=== PATIENT | male | born 1995 ===

== ENCOUNTER 2016-10-29 12:33 | Emergency (ER) | payer OTHER ==
[2016-10-29 12:44] VITALS: BP 119/65; PULSE 67; RESP 16; TEMP 98; O2SAT 100
--- NOTE | 2016-10-29 13:10 | ED PDOC ---
Upper Extremity Pain/Injury Time Seen by Provider: 10/29/16 12:53 Chief Complaint (Nursing): Finger,Hand,&Wrist Chief Complaint (Provider): wrist pain History Per: Patient, Work From Home (Registrar Xiomara at bedside for nepali translation) Additional Complaint(s): 21-year-old right-hand dominant male presents to emergency Department with pain to left wrist status post fall 7 days ago. Patient has been taking Tylenol which has helped the pain. No associated numbness or tingling to the affected area. Patient states he did not seek medical attention at time of injury 7 days ago. Past Medical History Reviewed: Historical Data, Nursing Documentation, Vital Signs Vital Signs: Last Vital Signs Temp 98.0 F 10/29/16 12:38 Pulse 67 10/29/16 12:38 Resp 16 10/29/16 12:38 BP 119/65 10/29/16 12:38 Pulse Ox 100 10/29/16 12:38 - Medical History PMH: No Chronic Diseases - Surgical History Surgical History: No Surg Hx - Family History Family History: States: No Known Family Hx - Living Arrangements Living Arrangements: With Family - Social History Current smoker - smoking cessation education provided: No Alcohol: None Drugs: Denies - Home Medications Home Medications: Ambulatory Orders Medication Instructions Recorded Ibuprofen [Motrin Tab] 800 mg PO Q8 PRN #20 tab 10/29/16 - Allergies Allergies/Adverse Reactions: Allergies Allergy/AdvReac Type Severity Reaction Status Date / Time No Known Allergies Allergy Verified 10/29/16 12:38 Review of Systems ROS Statement: Except As Marked, All Systems Reviewed And Found Negative Musculoskeletal: Positive for: Other (left wrist injury s/p fall 7 days ago) Physical Exam - Reviewed Nursing Documentation Reviewed: Yes Vital Signs Reviewed: Yes - Physical Exam Appears: Positive for: Well, Non-toxic, No Acute Distress Skin: Negative for: Rash Eye Exam: Positive for: Normal appearance Extremity: Positive for: Other (tenderness and swelling to dorsum of left wrist , full rom with pain, 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 All questions answered. Motrin provided good pain relief. Volar splint applied to affected area. 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 Procedures - Splinting Location: left wrist Hand-Made Type: fiberglass (volar splint) Pre-Proc Neuro Vasc Exam: normal Post-Proc Neuro Vasc Exam: normal Disposition - Clinical Impression Clinical Impression: Wrist fracture - Patient ED Disposition Is Patient to be Admitted: No Counseled Patient/Family Regarding: Studies Performed, Diagnosis, Need For Followup, Rx Given - Disposition Referrals: Yumiko Camejo MD [Staff Provider] - [facility] [Outside] [employer] [facility] [Outside] Disposition: Routine/Home Disposition Time: 15:00 Condition: STABLE Additional Instructions: Ice, rest and elevate affected area. Keep splint on at all times, do not remove splint or get splint wet. Follow up with orthopedist or clinic in one to 2 days. Prescriptions: Ibuprofen [Motrin Tab] 800 mg PO Q8 PRN #20 tab PRN Reason: Pain, Moderate (4-7) Instructions: Wrist Fracture in Adults (ED), Splint Care (ED) Forms: [employer] (Thai) Print Language: PUERTO RICAN
--- NOTE | 2016-10-29 14:05 | RAD ---
PROCEDURE: Left Wrist Radiographs. HISTORY: trauma COMPARISON: None. FINDINGS: BONES: Comminuted nondisplaced transverse distal radial fracture. There is minimal displacement of the dorsal fragment. There is a minimally displaced ulnar styloid process fracture. No carpal fracture is appreciated. JOINTS: Radiocarpal articulation intact. Normal carpal alignment is maintained. SOFT TISSUES: Normal. OTHER FINDINGS: None. IMPRESSION: Comminuted transverse distal radial fracture. Minimally displaced ulnar styloid process fracture
== END 2016-10-29 15:27 | disposition home or self-care (01) ==
LOC: H.ER 12:33
DX: S62.002A Unspecified fracture of navicular [scaphoid] bone of left wrist, initial encounter for closed fracture (principal); W19.XXXA Unspecified fall, initial encounter; Y92.89 Other specified places as the place of occurrence of the external cause